=== PATIENT | female | born 1960 | race Caucasian/White ===

== ENCOUNTER 2024-08-02 15:58 | Outpatient (REF) | payer BC, SELFPAY ==
[2024-08-02 16:22] LABS: MANUAL DIFF FLAG NO
[2024-08-02 17:27] LABS: Anion Gap 15 (12-20); Blood Urea Nitrogen 35 mg/dL (9-16); Calcium 10.3 mg/dL (8.4-10.2); Carbon Dioxide 29 mmol/L (22-29); Chloride 100 mmol/L (96-108); Estimated Glomerular Filt Rate > 60; Glucose Random 104 mg/dL (60-115); Potassium 3.9 mmol/L (3.3-5.1); Sodium 140 mmol/L (135-145)
[2024-08-02 17:36] LABS: Basophils Percent Auto 0.5 % (0-2); Eosinophils Absolute Auto 0.2 X10*3/uL (0.0-0.4); Eosinophils Percent Auto 3.1 % (0-4); Hematocrit 44.2 % (37.0-47.0); Hemoglobin 14.7 g/dl (12.0-16.0); Imm Gran Abs Auto 0.03 X10*3/uL (0.00-0.03); Imm Gran Pct Auto 0.4 % (0.0-0.4); Lymphocytes Absolute Auto 3.3 X10*3/uL (1.2-4.9); Lymphocytes Percent Auto 42.2 % (20-40); Mean Corpuscular HGB Conc 33.3 g/dl (31.0-35.0); Mean Corpuscular Hemoglobin 31.9 pg (27.0-33.0); Mean Corpuscular Volume 95.9 fL (80.0-98.0); Mean Platelet Volume 8.9 fL (9.4-12.3); Monocytes Absolute Auto 0.5 X10*3/uL (0.1-1.2); Monocytes Percent Auto 5.8 % (2-11); Neutrophils Absolute Auto 3.7 x10*3/uL (2.0-8.3); Platelet Count 375 X10*3/uL (160-400); Red Blood Count 4.61 X10*6/uL (4.20-5.50); Red Cell Distribution Width 12.6 % (11.0-16.0); White Blood Count 7.8 X10*3/uL (4.8-10.8)
--- OUTSIDE RECORDS SUMMARY | 2024-08-02 17:58 | XMS_ITS | Clinical Summary ---
Author Organization [facility] Address [address] [place] [address] Phone Care Team Providers Care Snowmaker Name Role Phone Tay Dumont MD Primary Care Provider [phone] Allergies Active Allergy Reactions Criticality Noted Date Comments Codeine 07/12/2024 Penicillins 07/12/2024 Medications loratadine 10 mg capsule Take 10 mg by mouth. 05/06/2020 Active atorvastatin (LIPITOR) 20 mg tablet Take 1 tablet (20 mg total) by mouth at bedtime. Active verapamil ER (VERELAN) 180 mg 24 hr capsule Take 1 capsule (180 mg total) by mouth 1 (one) time each day. 04/22/2024 Active metoprolol succinate (TOPROL-XL) 100 mg 24 hr tablet Take 1 tablet (100 mg total) by mouth 1 (one) time each day. Active lisinopril-hydr oCHLOROthiazide (PRINZIDE,ZESTO RETIC) 20-25 mg per tablet Take 2 tablets by mouth 1 (one) time each day. 06/23/2024 Active ondansetron (ZOFRAN) 4 mg tablet Take 1 tablet (4 mg total) by mouth 2 (two) times a day if needed. 03/14/2024 Active lisinopriL (PRINIVIL,ZESTR IL) 10 mg tablet 06/30/2024 Active Encounters Date Type Department Care Team Description 07/12/2024 Telephone Gastroenterology - [address] [facility] [address] [place] [phone] Gerardo Haile MD SPECIAL PROCEDURE 06/07/2024 7:19 AM EST - 06/07/2024 11:59 PM EST Hospital Encounter [facility] [address] [place] [phone] Asthma Discharge Disposition: Home or Self Care from Last 3 Months Social History Tobacco Use Types Packs/Day Years Used Date Smoking Tobacco: Never Smokeless Tobacco: Never Alcohol Use Standard Drinks/Week Comments Never 0 (1 standard drink = 0.6 oz pur e alcohol) Comments Unknown Sex and Gender Information Value Date Recorded Sex Assigned at Not on file Legal Sex Female 11:09 AM EST Gender Identity Not on file Sexual Orientation Not on file Obstetrics History Last Filed Vital Signs Vital Sign Reading Time Taken Comments Blood Pressure - - Pulse - - Temperature - - Respiratory Rate - - Oxygen Saturation - - Inhaled Oxygen Concentration - - Weight 106 kg (234 lb) 08/27/2021 8:37 AM EDT Height 162.6 cm (5' 4 ) 08/27/2021 8:37 AM EDT Body Mass Index 40.17 08/27/2021 8:37 AM EDT Plan of Treatment Health Maintenance Due Date Last Done Comments Cervical Cancer Screening: P ap Smear 1982 Zoster Vaccines (1 of 2) 09/17/2011 Pneumococcal Vaccine: 50+ Years (2 of 2 - PCV) 05/25/2020 05/25/2019 Pneumococcal Vaccine: Pediatrics (0 to 5 Years) and At-Risk Patients (6 to 64 Years) (2 of 2 - PCV) 05/25/2020 05/25/2019 RSV Immunization Adult Patients (1 - Risk 60-74 years 1-dose series) 2021 Cholesterol Screening (Lipid Panel) 03/31/2022 Colorectal Cancer Screening: Colonoscopy 03/31/2022 Depression Screening 03/31/2022 HIV Screening 03/31/2022 Hepatitis C Screening 03/31/2022 Social Influencers of Health Screening 03/31/2022 Hypertension/CHF/CAD Annual BMP Blood Test 04/18/2022 COVID-19 Vaccine (3 - 2023-2 5 season) 2024 03/22/2021, 03/01/2021 Influenza Vaccine (#1) 2024 7, 04/07/2016 Breast Cancer Screening 08/18/2025 08/19/19 24, 12/04/2020, 04/13/2019 DTaP,Tdap,and Td Vaccines (2 - Td or Tdap) 10/19/2025 10/20/2015 HIB Vaccines Aged Out No longer eligi ble based on patient's age to complete this topic HPV Vaccines Aged Out No longer eligi ble based on patient's age to complete this topic Hepatitis A Vaccines Aged Out No long er eligible based on patient's age to complete this topic Hepatitis B Vaccines Aged Out No long er eligible based on patient's age to complete this topic IPV Vaccines Aged Out No longer eligi ble based on patient's age to complete this topic MMR Vaccines Aged Out No longer eligi ble based on patient's age to complete this topic Meningococcal ACWY Vaccine Aged Out N o longer eligible based on patient's age to complete this topic Meningococcal B Vacine Aged Out No lo nger eligible based on patient's age to complete this topic RSV Immunization Patients Under 20 months Aged Out No longer eligible b ased on patient's age to complete this topic Varicella Vaccines Aged Out No longer eligible based on patient's age to complete this topic Procedures Procedure Name Priority Date/Time Associated Diagnosis Comments HC SPIROMETRY BRONCHODILATION RESPONSIVENESS PRE/POST BRONCHODILATOR ADMINISTRATION Routine 06/07/2024 8:07 AM EST Asthma [facility] SCREENING DIGITAL Routine 08/19/2023 10:40 AM EDT Encounter for screening mammogram for malignant neoplasm of breast from Last 3 Months or Most Recently Relevant to Health Maintenance Results * Pulmonary function testing: Carbon Monoxide Diffusing Capacity, Nitrogen Wash Out, Spirometry with Bronchodilator (06/07/2024 8:07 AM EST) Narrative Allyssa Anand MD - 06/08/2024 2:47 PM EST DATE OF SERVICE: 06/07/24 SPIROMETRY: FEV1 is 90 % predicted and an FVC ??is 82 % predicted. The FEV1/FVC ratio is normal, no response to bronchodilators noted. LUNG VOLUMES: Total lung capacity (TLC): 81% predicted. Residual volume (RV): 79% predicted DIFFUSION CAPACITY: DLCO 75% predicted. DlCO/VA 107% of predicted COMPARISONS: INTERPRETATION: This pulmonary function test shows normal spirometry and diffusion. ??There is no significant lung disease based on this PFT ??Allyssa Anand MD ?? us Karolina Power MD PFT ORDERABLES Final Result * [facility] SCREENING DIGITAL (08/19/2023 10:40 AM EDT) Anatomical Region Laterality Modality Mammography 08/19/2023 9:25 AM EDT Narrative 08/19/2023 10:40 AM EDT [facility] Diagnostic Imaging Department [address] [place], [place] [id number] Patient: ??STEPHANIE BRENNAN ?/Age/Sex: 1960 - 62 - F Unit#: ??[id number] ? Location/Status: ??SPDIMAM/REG CLI ? Mnemonic/Ordering Site: ??DIGSC/SPMAM Ordering Physician: ??TAY DUMONT MD [facility] Screening Digital - 08/19/23951 Report Status:Signed EXAM: [facility] Screening Digital EXAM DATE AND TIME: 08/19/2023 9:52 AM HISTORY: ??Annual screening COMPARISON: ??Multiple exams dating back to 2014 TECHNIQUE: Bilateral digital breast tomosynthesis was performed in the CC and MLO projections. Computer aided detection with [employer] Regen 3D 3.1 was employed. TISSUE DENSITY: b. There are scattered areas of fibroglandular density. FINDINGS: No suspicious masses, grouped microcalcifications, or areas of architectural distortion are seen. The skin and vascularity are unremarkable. IMPRESSION: Stable mammographic appearance of the breasts. ??No evidence of malignancy is seen. A negative mammogram in the presence of a clinically suspicious palpable abnormality does not preclude the possibility of malignancy or alter the indications for biopsy. BI-RADS: ??Category 1: Negative RECOMMENDATION(S): 1: Routine screening mammogram BILATERAL in 1 year. 3341F, 7025F Dictating Physician: ??TATI BANKS MD Electronically Signed by: ??TATI BAKNS MD Dic Date/Time: ??08/19/23 1039 Sign date/Time: ??08/19/23 1040 Procedure Note Tati Banks MD - 12/20/2023 [facility] Diagnostic Imaging Department [address] [place], [place] [id number] Patient: STEPHANIE BRENNAN Alvin /Age/Sex: 1960 - 62 - F Unit#: [id number] Location/Status: [facility] CLI Mnemonic/Ordering Site: [facility] Ordering Physician: TAY DUMONT MD [facility] Screening Digital - 08/19/23 - 0952 Report Status:Signed EXAM: [facility] Screening Digital EXAM DATE AND TIME: 08/19/2023 9:52 AM HISTORY: Annual screening COMPARISON: Multiple exams dating back to 2014 TECHNIQUE: Bilateral digital breast tomosynthesis was performed in the CCand MLO projections. Computer aided detection with [employer] 3D 3.1was employed. TISSUE DENSITY: b. There are scattered areas of fibroglandular density. FINDINGS: No suspicious masses, grouped microcalcifications, or areas ofarchitectural distortion are seen. The skin and vascularity are unremarkable. IMPRESSION: Stable mammographic appearance of the breasts. No evidence of malignancyis seen. A negative mammogram in the presence of a clinically suspicious palpable abnormality does not preclude the possibility of malignancy or alter the indications for biopsy. BI-RADS: Category 1: Negative RECOMMENDATION(S): 1: Routine screening mammogram BILATERAL in 1 year. 3341F, 7037F Dictating Physician: TATI BANKS MD Electronically Signed by: TATI BANKS MD Dic Date/Time: 08/19/23 1039 Sign date/Time: 08/19/23 1040 Tay Dumont MD IMG BI PROCEDURES Final Result from Last 3 Months or Most Recently Relevant to Health Maintenance Insurance [address] [place] [address] Advance Directives Documents on File Type Date Recorded Patient Operations Technician Expl anation Health Care Decision (hx) 01/06/2018 AD KNOTT DIRECTIVE Health Care Decision (hx) 01/06/2018 AD KNOTT DIRECTIVE Health Care Decision (hx) 01/06/2018 AD KNOTT DIRECTIVE Health Care Decision (hx) 01/06/2018 AD KNOTT DIRECTIVE Health Care Decision (hx) 01/06/2018 AD KNOTT DIRECTIVE Health Care Decision (hx) 01/06/2018 AD KNOTT DIRECTIVE Health Care Decision (hx) 01/06/2018 AD KNOTT DIRECTIVE Health Care Decision (hx) 01/06/2018 AD KNOTT DIRECTIVE Health Care Decision (hx) 01/06/2018 AD KNOTT DIRECTIVE Health Care Decision (hx) 01/06/2018 AD KNOTT DIRECTIVE Health Care Decision (hx) 01/06/2018 AD KNOTT DIRECTIVE Health Care Decision (hx) 01/06/2018 AD KNOTT DIRECTIVE Health Care Decision (hx) 01/06/2018 AD KNOTT DIRECTIVE Health Care Decision (hx) 01/06/2018 AD KNOTT DIRECTIVE Health Care Decision (hx) 01/06/2018 AD KNOTT DIRECTIVE Health Care Decision (hx) 01/06/2018 AD KNOTT DIRECTIVE Health Care Decision (hx) 01/06/2018 AD KNOTT DIRECTIVE Health Care Decision (hx) 01/06/2018 AD KNOTT DIRECTIVE Health Care Decision (hx) 01/06/2018 AD KNOTT DIRECTIVE Health Care Decision (hx) 01/06/2018 AD KNOTT DIRECTIVE Health Care Decision (hx) 01/06/2018 AD KNOTT DIRECTIVE Care Teams Snowmaker Relationship Specialty Start Date End Date Tay Dumont MD [address] [place] [address] PCP - General Internal Medicine 11/01/17
--- OUTSIDE RECORDS SUMMARY | 2024-08-02 17:58 | XMS_ITS | Encounter Summary ---
Author Organization [facility] Address [address] [place] [address] Care Team Providers Care Diamond Setter Name Role Phone Nirav Dumont MD Primary Care Provider [phone] Reason for Visit * Reason Onset Date Comments SPECIAL PROCEDURE 07/12/2024 Encounter Details Date Type Department Care Team (Late st Contact Info) Description 07/12/2024 Telephone Gastroenterology - [address] [facility] [address] [place] [phone] Gerardo Haile MD [address] [facility] [address] [facility] [address] [place] [address] SPECIAL PROCEDURE Social History Tobacco Use Types Packs/Day Years Used Date Smoking Tobacco: Never Smokeless Tobacco: Never Alcohol Use Standard Drinks/Week Comments Never 0 (1 standard drink = 0.6 oz pur e alcohol) Comments Unknown Sex and Gender Information Value Date Recorded Sex Assigned at Not on file Legal Sex Female 11:09 AM EST Gender Identity Not on file Sexual Orientation Not on file documented as of this encounter Progress Notes * Isela Ramírez - 07/21/2024 9:59 AM EDT CALLED PT TO SCHEDULE, WHEN I STATED WHO I WAS AND THE REASON FOR MY CALL THE PATIENT HUNG UP ON ME * Jaylene Cohen - 07/13/2024 10:56 AM EDT 1st attempt to schedule an appointment patient left message to call back * Niharika Etienne MA - 07/12/2024 10:51 AM EDT MEDS AND ALLERGIES UPDATED * Radhika García - 07/12/2024 9:12 AM EDT Records received from Dr. Dumont's office for screening. Given to MA's to update meds & allergies. documented in this encounter Plan of Treatment Not on file documented as of this encounter Visit Diagnoses Not on filedocumented in this encounter Historical Medications * This list may reflect changes made after this encounter. lisinopriL (PRINIVIL,ZESTRIL ) 10 mg tablet 06/30/2024 ondansetron (ZOFRAN) 4 mg tablet Take 1 tablet (4 mg total) by mouth 2 (two) times a day if needed. 03/14/2024 lisinopril-hydroC HLOROthiazide (PRINZIDE,ZESTORE TIC) 20-25 mg per tablet Take 2 tablets by mouth 1 (one) time each day. 06/23/2024 metoprolol succinate (TOPROL-XL) 100 mg 24 hr tablet Take 1 tablet (100 mg total) by mouth 1 (one) time each day. verapamil ER (VERELAN) 180 mg 24 hr capsule Take 1 capsule (180 mg total) by mouth 1 (one) time each day. 04/22/2024 atorvastatin (LIPITOR) 20 mg tablet Take 1 tablet (20 mg total) by mouth at bedtime. loratadine 10 mg capsule Take 10 mg by mouth. 05/06/2020 added in this encounter Care Teams Diamond Setter Relationship Specialty Start Date End Date Nirav Dumont MD [address] [place] [address] PCP - General Internal Medicine 11/01/17 documented as of this encounter
[2024-08-02 18:06] LABS: Folate 7.2 ng/mL (> or = 4.0); Vitamin B12 374 pg/mL (200-900)
== END 2024-08-02 15:59 | disposition home or self-care (01) ==
LOC: HO.LAB 15:58
PROVIDERS: PCP Internal Medicine; Visit Provider Psychiatry & Neurology Neurology
DX: G31.84 Mild cognitive impairment of uncertain or unknown etiology (principal)
CPT/HCPCS: 36415; 80048; 82607; 82746; 85025

== ENCOUNTER 2024-10-06 09:16 | Day surgery (SDC) | payer BC, SELFPAY ==
--- OUTSIDE RECORDS SUMMARY | 2024-09-27 12:26 | XMS_ITS | Clinical Summary ---
Author Organization [facility] Address [address] [place] [address] Phone Care Team Providers Care Wheat Grower Name Role Phone Tay Dumont MD Primary Care Provider [phone] Allergies Active Allergy Reactions Criticality Noted Date [...] 07/12/2024 Telephone Gastroenterology - [address] [facility] [address] [place] [phone] Gerardo Haile MD SPECIAL PROCEDURE from Last 3 Months Social History Tobacco [...] 08/27/2021 8:37 AM EDT Plan of Treatment Upcoming Encounters Date Type Department Care Team (Late st Contact Info) Description 10/23/2024 9:45 AM EDT Office Visit Pulmonolgy - [place] [address] [place] [phone] Karolina Power MD [address] [place] [address] Health Maintenance Due Date Last Done Comments [...] 5 season) 2024 03/22/2021, 03/01/2021 Influenza Vaccine (Season Ended) 2025 04/12/2017, 04/07/2016 Breast Cancer Screening 08/18/2025 08/19/19 24, [...] age to complete this topic Meningococcal B Vaccine Aged Out No l onger eligible based on patient's age to complete this topic RSV Immunization Patients Under 20 months Aged Out No longer eligible b ased on patient's age to complete this topic Varicella Vaccines Aged Out No longer eligible based on patient's age to complete this topic Procedures Procedure Name Priority Date/Time Associated Diagnosis Comments [facility] SCREENING DIGITAL Routine 08/19/2023 10:40 AM EDT Encounter for screening mammogram for malignant neoplasm of breast from Last 3 Months or Most Recently Relevant to Health Maintenance Results * [facility] SCREENING DIGITAL (08/19/2023 10:40 AM EDT) Anatomical Region Laterality Modality Mammography 08/19/2023 9:25 AM EDT Narrative 08/19/2023 10:40 AM EDT [facility] Diagnostic Imaging Department [address] [place] [id number] Patient: ??STEPHANIE BRENNAN ?/Age/Sex: 1960 - 62 - F Unit#: ??[id number] ? Location/Status: ??SPDIMAM/REG CLI ? Mnemonic/Ordering Site: ??DIGSC/SPMAM Ordering Physician: ??TAY DUMONT MD [facility] Screening Digital - 08/19/23 - 52 Report Status:Signed EXAM: [facility] Screening Digital EXAM DATE AND TIME: 08/19/2023 9:52 AM HISTORY: ??Annual screening COMPARISON: ??Multiple exams dating back to 2014 TECHNIQUE: Bilateral digital breast tomosynthesis was performed in the CC and MLO projections. Computer aided detection with [employer] 3D 3.1 was employed. TISSUE DENSITY: b. [...] ??TATI BANKS MD Electronically Signed by: ??TATI BANKS MD Dic Date/Time: ??08/19/23 1039 Sign date/Time: ??08/19/23 1040 Procedure Note Tati Banks MD - 12/20/2023 [facility] Diagnostic Imaging Department [address] [place] [id number] Patient: STEPHANIE BRENNAN Alvin /Age/Sex: 1960 - 62 - F Unit#: [id number] Location/Status: SPDIMAM/REG CLI [facility]emonic[facility] Ordering Physician: TAY DUMONT MD [facility] Screening Digital - 08/19/23 - 0952 Report Status:Signed EXAM: [facility] Screening Digital EXAM DATE AND TIME: 08/19/2023 9:52 AM HISTORY: Annual screening COMPARISON: Multiple exams dating back to 2014 TECHNIQUE: Bilateral digital breast tomosynthesis was performed in the CCand MLO projections. Computer aided detection with [employer] 3D 3.1was employed. TISSUE DENSITY: b. There [...] in 1 year. 3341F, 7025F Dictating Physician: TATI BANKS MD Electronically Signed by: TATI BANKS MD Dic Date/Time: 08/19/23 1039 Sign date/Time: 08/19/23 1040 Tay Dumont MD IMG BI PROCEDURES Final Result from Last 3 Months or Most Recently Relevant to Health Maintenance Insurance [place] [address] Advance Directives Documents on File Type Date Recorded Patient Supervisor Dock Expl anation Health Care Decision (hx) 01/06/2018 [...] (hx) 01/06/2018 AD KNOTT DIRECTIVE Care Teams Wheat Grower Relationship Specialty Start Date End Date Tay Dumont MD [address] [place] [address] PCP - General Internal Medicine 11/01/17
--- NOTE | ~2024-10-06 | FL_ITS ---
EXAMINATION: XR LUMBAR PUNCTURE CLINICAL INFORMATION: DEMENTIA PANEL COMPARISON: None available. TECHNIQUE: Following explaining fluoroscopy-guided lumbar puncture procedure, benefits and risk, a written consent was obtained. Patient was placed prone on fluoroscopy table and a site was selected and the skin marker placed. The skin marker area was cleaned and draped in usual sterile manner. 1% lidocaine was injected at puncture site. A 28 spinal needle was then inserted from the skin intrathecally at the L2-4 disc level. After removing the stylet and observing CSF return patient was turned in left lateral decubitus view and opening CSF pressure was obtained. Subsequently CSF fluid was collected in 4 test tubes. The stylet was reintroduced postprocedure needle withdrawn. Complete hemostasis achieved at puncture site. Sterile Band-Aid applied postprocedure. Patient tolerated procedure extremely well. FINDINGS: On images obtained of lumbar spine there is maintained lumbar lordosis. Mild loss of L5-S1 disc height is seen. Rest the disc heights are normal. Needle is positioned at the L3-4 disc level. Opening CSF pressure measured 12.25 cm of water. Approximately 15 mL of clear CSF fluid collected in 4 test tubes and sent to lab as per physician request. FLUOROSCOPY TIME: 41 seconds DOSE AREA PRODUCT: 1436 uGy-m2 (microgray-meter squared) FL/FL guided lumbar puncture LP IMPRESSION: Successful fluoroscopy-guided lumbar puncture performed. Electronically signed by: Steven Rocha MD 10/06/2024 12:32 PM EDT
[2024-10-06 09:08] VITALS: BMI 28.0
[2024-10-06 09:20] VITALS: PULSE 65; TEMP 36.9; O2SAT 96; BMI 31.1
[2024-10-06 09:46] VITALS: BP 110/64
[2024-10-06 10:14] LABS: MANUAL DIFF FLAG NO
[2024-10-06 10:17] LABS: Basophils Percent Auto 0.3 % (0-2); Eosinophils Absolute Auto 0.1 X10*3/uL (0.0-0.4); Eosinophils Percent Auto 1.5 % (0-4); Hematocrit 38.2 % (37.0-47.0); Hemoglobin 13.1 g/dl (12.0-16.0); Imm Gran Abs Auto 0.02 X10*3/uL (0.00-0.03); Imm Gran Pct Auto 0.3 % (0.0-0.4); Lymphocytes Absolute Auto 2.1 X10*3/uL (1.2-4.9); Lymphocytes Percent Auto 31.5 % (20-40); Mean Corpuscular HGB Conc 34.3 g/dl (31.0-35.0); Mean Corpuscular Hemoglobin 32.4 pg (27.0-33.0); Mean Corpuscular Volume 94.6 fL (80.0-98.0); Mean Platelet Volume 9.1 fL (9.4-12.3); Monocytes Absolute Auto 0.4 X10*3/uL (0.1-1.2); Monocytes Percent Auto 6.5 % (2-11); Neutrophils Absolute Auto 4.1 x10*3/uL (2.0-8.3); Neutrophils Percent Auto 59.9 % (45-73); Platelet Count 291 X10*3/uL (160-400); Red Blood Count 4.04 X10*6/uL (4.20-5.50); Red Cell Distribution Width 12.5 % (11.0-16.0); White Blood Count 6.8 X10*3/uL (4.8-10.8)
[2024-10-06 10:27] LABS: Anion Gap 14 (12-20); Blood Urea Nitrogen 25 mg/dL (9-16); Calcium 9.5 mg/dL (8.4-10.2); Carbon Dioxide 28 mmol/L (22-29); Chloride 104 mmol/L (96-108); Creatinine Clr Calc Pharmacy 68.1; Estimated Glomerular Filt Rate > 60; Glucose Random 112 mg/dL (60-115); Sodium 143 mmol/L (135-145)
[2024-10-06 10:28] LABS: INTERNATIONAL NORM RATIO 0.9 (0.9-1.1); Prothrombin Time 10.5 SEC (10.9-12.4)
[2024-10-06 11:25] VITALS: BP 117/61; PULSE 54; RESP 17; TEMP 36.4; O2SAT 99
[2024-10-06 11:40] VITALS: BP 114/65; PULSE 53; RESP 16; O2SAT 95
[2024-10-06 11:55] VITALS: BP 119/67; PULSE 52; RESP 16; O2SAT 98
[2024-10-06 12:17] LABS: CSF Appearance Clear, Colorless; CSF Tube # 2
[2024-10-06 12:20] VITALS: BP 118/69; PULSE 53; RESP 16; TEMP 36.4; O2SAT 100
[2024-10-06 12:29] LABS: Glucose CSF 65 mg/dL; Total Protein CSF 53.6 mg/dL (15-45)
[2024-10-06 12:33] LABS: Oligoclonal Serum Yes
[2024-10-06 13:22] LABS: Appearance CSF CLEAR; CSF Tube # 4; Color CSF COLORLESS; Lymphocytes CSF 100 %; Red Blood Cell CSF 1 MM*3; White Blood Cell CSF 2 MM*3
[2024-10-06 13:23] LABS: CSF Volume 4.5 ML
[2024-10-11 03:43] LABS: Albumin 3.8 g/dL (3.6-5.1); Albumin, CSF 34.9 mg/dL (8.0-42.0); IgG 919 mg/dL (600-1540); IgG Synthesis Rate -4.5 mg/24 h (-9.9-3.3); IgG, CSF 3.5 mg/dL (0.8-7.7)
[2024-10-11 22:33] LABS: Oligoclonal Banding Absent (Absent)
== END 2024-10-06 12:41 | disposition home or self-care (01) ==
PROVIDERS: Radiology Diagnostic Radiology; PCP Internal Medicine; Visit Provider Psychiatry & Neurology Neurology
PROC: 009U3ZZ Drainage of Spinal Canal, Percutaneous Approach (ICD-10-PCS; CPT 62270; principal; 2024-10-06 11:00)
DX: G31.84 Mild cognitive impairment of uncertain or unknown etiology (principal); E78.5 Hyperlipidemia, unspecified; I10 Essential (primary) hypertension; G44.40 Drug-induced headache, not elsewhere classified, not intractable; Z86.73 Personal history of transient ischemic attack (TIA), and cerebral infarction without residual deficits; G47.33 Obstructive sleep apnea (adult) (pediatric); Z79.899 Other long term (current) drug therapy; Z88.0 Allergy status to penicillin; Z88.5 Allergy status to narcotic agent
CPT/HCPCS: 36415; 62328; 80048; 82042; 82234; 82945; 83916; 84157; 84393; 84394; 85025; 85610; 87015; 87070; 87205; 89051; J2003

== ENCOUNTER → 2024-10-06 10:00 | Outpatient (BNV) | payer BC, SELFPAY | PROVIDERS: PCP Internal Medicine; Visit Provider Radiology Diagnostic Radiology | DX: G31.84 Mild cognitive impairment of uncertain or unknown etiology (principal) | CPT/HCPCS: 62328 ==

== ENCOUNTER 2024-12-27 10:41 | Outpatient (AMB) | payer BC, MEDICAID, SELFPAY ==
--- NOTE | 2024-12-27 11:15 | A.OFFVIS_ITS ---
Intake Visit Reasons: [facility] Allergies penicillin G (Penicillin G) Allergy (Mild, Verified 10/06/24 09:32) FEVER,RASH codeine (Codeine) Adverse Reaction (Mild, Verified 10/06/24 09:32) FEVER,RASH Medication List - Last Reconciled 12/27/24 by Heather Bay MD albuterol sulfate 90 mcg/actuation 2 puffs inhalation Q4-6H PRN amitriptyline 20 mg (2 x 10 mg) PO BEDTIME 90 days atorvastatin 20 mg PO BEDTIME euafmqkoysz-yhvzjhlrj-nsnvsadf 100-62.5-25 mcg (Trelegy Ellipta) 1 ea inhalation DAILY lisinopril-hydrochlorothiazide 20-25 mg 2 tabs PO DAILY meclizine 12.5 mg PO TID PRN metoprolol succinate ER 100 mg PO DAILY verapamil ER 180 mg PO DAILY HPI Comments Details: Medication overuse CONTRERAS and memory issues. Headaches are better but still using 4 Tyl a day. No side effects from Amitriptyline. MRI and EEG reported below. She has been let go?from her job because she is unable to perform her duties that she did for 25 years.? She is aware that she has some mental issues with her memory.?When too much going on it becomes overwhelming an dshe gets aggravated and angry and confused. It comes and goes. She sleeps excessively.? She complains of 4 months of daily headache for which he is taking 2 Tylenol every 4 hours.? She had a CT scan of the brain at [facility] which was apparently negative.? There is no family history of dementia.? She gives a remote history of having had a brain bleed because of uncontrolled hypertension about 10 years ago. [facility]LY [facility], [facility] Medical History (Updated 12/27/24 @ 11:19 by Heather Bay MD) Gall bladder inflammation Hx of electroencephalogram Mild cognitive impairment NATHAN (obstructive sleep apnea) HLD (hyperlipidemia) CVA (cerebrovascular accident) Anxiety Depression HTN (hypertension) Social History Patient Tobacco Use Status: Never used Tobacco Review of Systems Const Details: Sleep:? Difficulty getting to sleepdenies.? Difficulty maintaining sleepdenies?.? Urge to move legsdenies.? Teeth grindingdenies.? Shouting or Kicking during sleep denies.? Abnormal behavior during sleepdenies.? Excessive sleepadmits.? Snoring denies.? Daytime sleepinessdenies. ???General/Constitutional:? Change in appetitedenies.? Chillsdenies.? Fatiguedenies.? Feverdenies.? Weight gaindenies.? Weight lossdenies. ???Ophthalmologic:? Blurred visiondenies.? Diminished visual acuitydenies. ???ENT:? Stuffinessdenies.? Decreased hearingdenies.? Dry mouthdenies.? Ear paindenies.? Nosebleeddenies.? Ringing in the earsdenies.? Sinus paindenies.? Sore throat denies.? Swollen glandsdenies. ???Endocrine:? Cold intolerancedenies.? Excessive thirstdenies.? Frequent urinationdenies.? Heat intolerancedenies. ???Respiratory:? Shortness of breathdenies.? Chest paindenies.? Coughdenies. ???Breast:? Breast lumpdenies.? Nipple dischargedenies. ???Cardiovascular:? Chest pain at restdenies.? Chest pain with exertiondenies.? Claudicationdenies .? Dizzinessdenies.? Fluid accumulation in the legsdenies.? Irregular heartbeat denies.? Palpitationsdenies. ???Gastrointestinal:? Abdominal paindenies.? Constipationdenies.? Diarrheadenies.? Difficulty swallowingdenies.? Heartburndenies.? Nauseadenies.? Rectal bleedingdenies. ???Hematology:? Easy bruisingdenies.? Prolonged bleedingdenies. ???Genitourinary:? Frequent urinationdenies.? Urgencydenies.? Incontinencedenies.? Erectile Dysfunctiondenies. ???Musculoskeletal:? Neck paindenies.? Back paindenies.? Muscle achesdenies.? Painful jointsdenies.? Sciaticadenies.? Weaknessdenies. ???Podiatric:? Difficulty walkingdenies.? Foot numbnessdenies. ???Neurologic:? Difficulty swallowingdenies.? Balance difficultydenies.? Coordinationnormal.? Difficulty speakingdenies.? Dizzinessdenies.? Faintingdenies.? Gait abnormality denies.? Headacheadmits.? Loss of strengthdenies.? Loss of use of extremity denies.? Low back paindenies.? Memory lossadmits.? Seizuresdenies.? Ticsdenies.? Tingling/Numbnessdenies.? Transient loss of visiondenies.? Tremordenies. ???Psychiatric:? Anxietydenies.? Auditory/visual hallucinationsdenies.? Delusionsdenies.? Depressed mooddenies.? Stressorsdenies.? Substance abusedenies.? Suicidal thoughtsdenies. Physical Exam Neuro Other: Neurological: Abnormal neurological findings:??Flat affect. MMS 29/30.?Mental Status:??alert and oriented X 3,?Normal attention, orientation, memory and affect.?Cranial Nerves:??Pupils are equal, round and reactive to light. Fundoscopy shows normal disc bilaterally. External occular muscles are intact. Visual shaw are full, no ptosis. Face is symmetrical, no facial weakness or droop. Facial sensations are normal. Tongue protrudes in midline. Palate elevates symmetrically. Shoulder shrugging is normal..?Motor Examination:??Normal muscle tone, bulk and strength,?No atrophy or fasciculations,?No drift of the extended upper extremities,?Deep tendon reflexes are 2+?,?Plantars are flexor?.?Straight Leg Raising:??90 degrees.?Sensory Exam:??Normal light touch, temperature, pinprick, vibration and joint-position sensations?,?Rhomberg sign is absent.?Coordination:??no ataxia,?no titubation,?iqazjy-ri-hwur, hchj-jlpz-kuxm test and rapid alternating movements were normal.?Gait Exam:??Within normal limits.?Cerebellar Signs:??Xtxbbf-ps-blax and lmhw-es-ebji is normal,?no dysdiadochokinesia?.?Extrapyramidal System:??No tremor, rigidity with normal facial expressions,?No bradykinesia, no bradyphrenia. Normal arm swing and posture. No propulsion or retropulsion.?Speech:??Normal,?no dysphasia or dysarthria..? Mini Mental Status Exam: Level of Consciousness:??Alert.?Orientation:??Knows correct year, month, date, day and season,?Knows correct city, county and state. Knows correct location and floor.?Registration:??Able to register 3 objects.?Attention:??Serial 7's performed accurately.?Recall:??Able to recall 2 out of 3 objects.?Language:??Normal spontaneous speech, fluency, repetition,naming, comprehension, reading and writing.?Total Score:??29/30.? General Examination: GENERAL APPEARANCE:??normal,?in no acute distress.?HEAD:??normocephalic,?atraumatic.?EYES:??sclera non- icteric,?conjunctiva clear.?EARS:??auditory canal clear,?tympanic membrane intact, clear.?NOSE:??no lesions.?ORAL CAVITY:??gums normal,?mucosa moist,?no lesions.?THROAT:??clear.?NECK/THYROID:??no cervical lymphadenopathy,?thyroid normal,?neck supple, full range of motion,?no carotid bruit.?SKIN:??no rashes,?no significant birthmarks.?HEART:??S1, S2 normal,?no murmurs.?LUNGS:??clear anteriorly and posteriorly.?CHEST:??no gross rib deformity,?clear to auscultation.?BACK:??normal exam of spine.?EXTREMITIES:??no edema.?PERIPHERAL PULSES:??normal.?PSYCH:??alert, oriented,?cognitive function intact,?cooperative with exam.? Results Reviewed Results Reviewed: Spinal fluid Protein 53.6 Phosphotau and A beta 42 inconclusive Assessment & Plan Assessment & Plan (1) Chronic daily headache: Code(s): R51.9 - Headache, unspecified Category: Medical (2) Mild cognitive impairment: Comment: 09/22/24 MMSE , MoCA with MIS 10/15. 08/17/24 EEG- WNL MRI : mild to moderate cortical atrophy , particularly in the temporal lobes. Minor microvascular changes Code(s): G31.84 - Mild cognitive impairment of uncertain or unknown etiology Category: Medical Plan Add Donepezil 5mg Medications: New donepezil 5 mg PO DAILY 30 tabs 5RF 30 days Coding Level of Care Code Est Pt Level 4 (54539) Diagnoses Chronic daily headache R51.9 Mild cognitive impairment G31.84
--- OUTSIDE RECORDS SUMMARY | 2024-12-27 11:35 | XMS_ITS | Clinical Summary ---
Author Organization [facility] Address [address] [place] [id number] Phone Care Team Providers Care Sales Promoter Name Role Phone Nirav Dumont MD Primary Care Provider [phone] Active Problems Problem Noted Date Diagnosed Date Other chest pain 06/30/2019 Social History Tobacco Use Types Packs/Day Years Used Date Smoking Tobacco: Never Assessed Education Answer Date Recorded Are you interested in more education? Not on alex e 08/28/2022 Are you concerned about learning? Not on file 08/28/2022 No 08/28/2022 No 08/28/2022 Digital Access Answer Date Recorded No 09/26/2022 No 09/26/2022 No 09/26/2022 Reliable internet access at home? Not on file 09/26/2022 Device with a working camera? Not on file Comments Unknown Sex and Gender Information Value Date Recorded Sex Assigned at Not on file Legal Sex Female 2:06 PM EST Gender Identity Not on file Sexual Orientation Not on file Last Filed Vital Signs Vital Sign Reading Time Taken Comments Blood Pressure 122/72 06/30/2019 1:35 PM EST Pulse - - Temperature - - Respiratory Rate - - Oxygen Saturation 99% 06/30/2019 1:00 PM EST Inhaled Oxygen Concentration - - Weight - - Height - - Body Mass Index - - Plan of Treatment Health Maintenance Due Date Last Done Comments LIPID PANEL 1961 DEPRESSION SCREENING 1973 SMOKING Hx and SMOKELESS TOB ACCO SCREENING 1974 HEPATITIS C SCREENING 09/17/1979 HIV ONE-TIME SCREENING (18-6 5 YEARS) 09/17/1979 PAP SMEAR 1982 MAMMOGRAM 2001 COLOGUARD 2006 COLONOSCOPY 2006 COLORECTAL CANCER SCREENING 2006 FIT TEST 2006 FOBT 2006 SIGMOIDOSCOPY 2006 VIRTUAL COLONOSCOPY 2006 PNEUMOCOCCAL VACCINES (50+ y ears) (1 of 1 - PCV) 09/17/2011 ZOSTER VACCINES (1 of 2) 09/17/2011 COVID-19 VACCINE (2 - 2023-2 5 season) 2024 03/01/2021 Adult Td,Tdap Booster 10/19/2025 10/20/2015 RSV VACCINE (1 - 1-dose 75+ series) 2036 HEPATITIS A VACCINES Aged Out No long er eligible based on patient's age to complete this topic HIB VACCINES Aged Out No longer eligi ble based on patient's age to complete this topic MENINGOCOCCAL VACCINES (ACWY) Aged Out No longer eligible based on patient's age to complete this topic MENINGOCOCCAL VACCINES (B) Aged Out N o longer eligible based on patient's age to complete this topic Medical Devices Not on file [place] [address] [address] [place] [address] PPO [facility] PPO [employer] OUT OF STATE PPO BL[employer] OUT OF STATE PPO [address] [place] [id number] [employer] OUT OF STATE PPO [address] [id number] [employer] OUT OF STATE PPO BL[employer] OUT OF STATE PPO [employer] OUT OF STATE PPO [address] [place] [address] [facility] OUT OF STATE PPO Care Teams Sales Promoter Relationship Specialty Start Date End Date Nirav Dumont MD [address] [place] [address] [address] [place] [address] PCP - General Internal Medicine 06/30/19 Additional Source Comments The information contained in this document represents components of the legal health record. It is not the complete legal health record.[facility]
--- OUTSIDE RECORDS SUMMARY | 2024-12-27 11:35 | XMS_ITS | Encounter Summary ---
Author Organization [facility] Address [address] [place] [address] Phone Care Team Providers Care Marketing And Public Relations Manager Name Role Phone Pcp, Unknown Primary Care Provider Nirav Snyder MD Primary Care Provider [phone] Reason for Referral * MRI/CAT Scan - Closed Specialty Diagnoses / Procedures Referred By Contac t Referred To Contact Radiology Diagnoses Atypical chest pain Procedures NC Myocardial Perfusion Exercise Multiple Ru Viveros DO Phone: tel: fax: mailto:[email or web address] Referral ID Status Reason Start Date Expiration Date Visits Re quested Visits Authorized [id number] Closed 06/27/2019 09/25/2019 1 1 * Outpatient Procedure - Closed Specialty Diagnoses / Procedures Referred By Contac ysabel Referred To Contact Diagnoses Atypical chest pain Procedures Adult Echo TTE Ru Viveros DO Phone: tel: fax: mailto:[email or web address] Referral ID Status Reason Start Date Expiration Date Visits Re quested Visits Authorized [id number] Closed 06/23/2019 06/22/2020 1 1 Encounter Details Date Type Department Care Team (Latest Contact Info) Description 06/23/2019 Transcribe [facility] [address], [address] [place] [address] Ru Viveros DO [address] [address] [email or web address] Atypical chest pain (Primary Dx) Social History Tobacco Use Types Packs/Day Years Used Date Smoking Tobacco: Never Assessed Comments Unknown Sex and Gender Information Value Date Recorded Sex Assigned at Not on file Legal Sex Female 2:06 PM EST Gender Identity Not on file Sexual Orientation Not on file documented as of this encounter Plan of Treatment Scheduled Orders Name Type Priority Associated Diagnoses Orde r Schedule Adult Echo TTE Echocardiography Routine Atypical chest pain Ordered: 06/23/2019 documented as of this encounter Procedures Procedure Name Priority Date/Time Associated Diagnosis Comments NC MYOCARDIAL PERFUSION EXERCISE, MULTI Routine 06/30/2019 1:36 PM EST Atypical chest pain documented in this encounter Results * NC Myocardial Perfusion Exercise Multiple (06/30/2019 1:36 PM EST) Nuc Stress EF 66 % LV Systolic Volume 28 mL LV Diastolic Volume 83 mL EF 66 % LV Systolic Volume Index 33 mL/m2 LV Diastolic Volume Index 96 mL/m2 Anatomical Region Laterality Modality Heart, Vascular Ultrasound Other Narrative 06/30/2019 3:40 PM EST Normal study. There is no evidence of myocardial infarction or ischemia. Normal LV size and function with no regional wall motion abnormalities. Very low likelihood of hemodynamically significant coronary artery disease. Low risk study for myocardial events or cardiac in the next two years. Nuclear Study Quality TYPE OF STUDY: Myocardial Perfusion Imaging after Regadenoson protocol with gated SPECT. PROTOCOL USED: One day Regadenoson rest-stress protocol in the supine and prone position. Images were obtained in gated tomographic technique. Images were processed in SPECT format, reconstructed tomographically and compared [id number]-uk-[id number] in short axis, horizontal long axis and vertical long axis. DOSE: Technetium 99m Sestamibi 7.1 mCi injected intravenously at rest on 06/30/2019 with post injection scan time of 60 minutes. Technetium 99m Sestamibi 22.0 mCi injected intravenously after Regadenoson infusion on 06/30/2019 with post injection scan time of 30 minutes. Overall image quality is good. Breast attenuation is present. . Study was gated successfully. Perfusion Defect The lung to heart ratio is 0.32. Response to Stress Stress Report: Weight: 196 lbs BMI: 32.69 Mrs. Stephanie Brennan exercised for 3: 48 minutes on a Bk protocol achieving 6.4 METS. Target heart rate was not achieved with exercise. Test was done on metoprolol. Test was converted to a pharmacologic. 0.4 mg Regadenoson (lexiscan) given IV push over 10 seconds as per protocol immediately followed by injection of Tc99m Sestamibi by [facility] non licensed nuclear equipment operator. 1. EKG - Baseline EKG showed normal sinus rhythm, nonspecific ST-T wave abnormalities. No ischemic EKG changes with exercise or after the injection of Lexiscan. 2. SYMPTOMS -patient reported flushing after the injection of Lexiscan. 3. PHYSIOLOGY - Resting HR was 59. After Lexiscan injection, HR 92 4. ARRHYTHMIAS -occasional PVCs Conclusion - no ischemic EKG changes with pharmacologic testing. Nuclear images pending and will be reported separately. See attached stress report for full details. Noah Bolden SPECIAL EDUCATION AIDE . Perfusion Comments Stress LV cavity volume was 66 mL. Resting LV cavity volume was 61 mL. The stress/rest perfusion ratio is 1.08. The TID ratio was 1.1. Stress Function Comments Left ventricular function post-stress was normal. Post-stress ejection fraction was 66%. Stress end diastolic index: 96 mL/m2. Stress end systolic index: 33 mL/m2. Nuclear Prior Study There is no prior study available for comparison. Rest Function Comments Left ventricular function at rest was normal. Resting ejection fraction was 66%. Rest end diastolic index: 83 mL. Rest end systolic index: 28 mL. Perfusion Scoring Stress Summed Score: 0 Percent Normal: 0.00% The left ventricular perfusion is normal. Perfusion Scoring Resting Summed Score: 0 Percent Normal: 0.00% The left ventricular perfusion is normal. Procedure Note Lory Beebe MD / Artemio Garcia MD - 06/30/2019 Normal study. There is no evidence of myocardial infarction or ischemia. Normal LV size and function with no regional wall motion abnormalities. Very low likelihood of hemodynamically significant coronary arterydisease. Low risk study for myocardial events or cardiac in the next twoyears. Ru Nelson Arcoleo DO CV NM CARDIAC Final Result documented in this encounter Visit Diagnoses Diagnosis Atypical chest pain- Primary Other chest pain Other chest pain- Primary documented in this encounter Care Teams Marketing And Public Relations Manager Relationship Specialty Start Date End Date Pcp, Unknown PCP - General 06/23/19 06/29/19 Nirav Dumont MD [address] [place] [address] PCP - General Internal Medicine 06/30/19 documented as of this encounter Additional Source Comments The information contained in this document represents components of the legal health record. It is not the complete legal health record.[facility]
--- OUTSIDE RECORDS SUMMARY | 2024-12-27 11:35 | XMS_ITS | Clinical Summary ---
Author Organization [facility] Address [address] [place] [address] Phone Care Team Providers Care Development Administrator Name Role Phone Nirav Dumont MD Primary Care Provider Allergies Active Allergy Reactions Criticality Noted Date Comments Codeine 07/12/2024 Penicillins 07/12/2024 Medications loratadine 10 mg capsule Take 10 mg by mouth. 05/06/19 21 Active atorvastatin (LIPITOR) 20 mg tablet Take 1 tablet (20 mg total) by mouth at bedtime. Active verapamil ER (VERELAN) 180 mg 24 hr capsule Take 1 capsule (180 mg total) by mouth 1 (one) time each day. 04/22/20 24 Active metoprolol succinate (TOPROL-XL) 100 mg 24 hr tablet Take 1 tablet (100 mg total) by mouth 1 (one) time each day. Active lisinopril-hyd roCHLOROthiazi de (PRINZIDE,ZEST ORETIC) 20-25 mg per tablet Take 2 tablets by mouth 1 (one) time each day. 06/23/19 25 Active ondansetron (ZOFRAN) 4 mg tablet Take 1 tablet (4 mg total) by mouth 2 (two) times a day if needed. 03/14/20 24 Active lisinopriL (PRINIVIL,ZEST RIL) 10 mg tablet 06/30/19 25 Active amitriptyline (ELAVIL) 10 mg tablet Take 2 tablets (20 mg total) by mouth at bedtime. at bedtime 10/10/19 25 Active umeclidinium-v ilanteroL (Anoro Ellipta) 62.5-25 mcg/actuation inhaler Inhale 1 puff by mouth 1 (one) time each day. 3 each 12/07/19 25 026 Active umeclidinium-v ilanteroL (Anoro Ellipta) 62.5-25 mcg/actuation inhaler Inhale 1 puff by mouth 1 (one) time each day. 3 each 12/07/19 25 026 Active albuterol HFA (PROAIR HFA ; PROVENTIL HFA ; VENTOLIN HFA) 90 mcg/actuation inhaler Inhale 2 puffs by mouth 4 (four) times a day. 36 g 12/19/19 25 Active potassium chloride (MICRO-K) 10 mEq CR capsule Take 1 capsule (10 mEq total) by mouth 1 (one) time each day. 10/28/19 25 Active nitroglycerin (Nitrostat) 0.[address] 1 tablet (0.4 mg total) under the tongue. 03/08/20 24 Active fluticasone-um eclidinium-joe anterol (TRELEGY ELLIPTA) 100-62.5-25 mcg inhaler Inhale 1 puff (100 mcg total) by mouth 1 (one) time each day. Rinse mouth with water after use to reduce aftertaste and incidence of candidiasis. Do not swallow. 60 each 12/22/19 25 Active albuterol HFA (PROAIR HFA ; PROVENTIL HFA ; VENTOLIN HFA) 90 mcg/actuation inhaler Inhale 2 puffs by mouth 4 (four) times a day. 05/12/19 25 025 Discontinued(Re order) Trelegy Ellipta 100-62.5-25 mcg inhalerIndicat ions:Severe asthma without complication, unspecified whether persistent Inhale 1 puff (100 mcg total) by mouth 1 (one) time each day. 1 each 11/30/19 25 025 Discontinued umeclidinium-v ilanteroL (Anoro Ellipta) 62.5-25 mcg/actuation inhaler Inhale 1 puff by mouth 1 (one) time each day. 3 each 11 12/01/19 025 Discontinued(Re order) fluticasone-um eclidinium-joe anterol (TRELEGY ELLIPTA) 100-62.5-25 mcg inhaler Inhale 1 puff (100 mcg total) by mouth 1 (one) time each day. Rinse mouth with water after use to reduce aftertaste and incidence of candidiasis. Do not swallow. 025 Discontinued(Re order) Hospital, Clinic, or Other Facility Administered Medication Ordered Dose Route Frequency Start Date End Date Status fluticasone furoate (ARNUITY ELLIPTA) inhaler blister with device 1 puffIndications:Pulmonary emphysema, unspecified emphysema type ([facility] V24, [facility] V28) 1 puff inhl Daily 11/30/2024 Active fluticasone furoate (ARNUITY ELLIPTA) inhaler blister with device 1 puffIndications:Pulmonary emphysema, unspecified emphysema type ([facility] V24, [facility] V28) 1 puff inhl Daily 12/06/2024 Active Active Problems Problem Noted Date Diagnosed Date Class 1 obesity 12/21/2024 NATHAN (obstructive sleep apnea) 10/20/2024 Palpitations 10/20/2024 Pancreatitis 10/20/2024 Severe obesity (BMI 35.0-39. 9) with comorbidity ([facility] V24, [facility] V28) 10/20/2024 Vitamin D deficiency 10/20/2024 COPD (chronic obstructive pu lmonary disease) ([facility] V24, [facility] V28) 10/20/2024 Anxiety disorder 12/27/2020 Calculus of gallbladder 12/27/2020 Coronary atherosclerosis of [place] coronary micaela ry 12/27/2020 Diverticulitis 12/27/2020 HTN (hypertension) 12/27/2020 Hyperlipidemia 12/27/2020 Joint pain of ankle and foot 12/27/2020 Lumbago 12/27/2020 Over weight 12/27/2020 Stress incontinence, female 12/27/2020 Other chest pain 06/30/2019 Encounters Date Type Department Care Team Description 12/21/2024 Telephone Pulmonolgy - [address] [phone] Karolina Power MD [facility] [address] [place] [phone] Karolina Power MD 11/29[facility] [address] [phone] Karolina Power MD 11/28/2024 3:35 AM EDT - 11/28/2024 8:10 AM EDT Emergency [facility] Emergency [address] [place] [phone] Discharge Disposition: Left Against Medical Advice 11/02/2024 2:45 PM EDT [facility] [address] [phone] Karolina Power MD Severe asthma, unspecified whether complicated, unspecified whether persistent (Primary Dx); Severe obesity (BMI 35.0-39.9) with comorbidity (CMS/HCC V24, CMS/HCC V28) from Last 3 Months Social History Tobacco [...] Sign Reading Time Taken Comments Blood Pressure 102/72 11/28/2024 3:51 AM EDT Pulse 65 11/28/2024 3:51 AM EDT Temperature 36.9 C (98.4 F) 11/28/2024 3:51 AM EDT Respiratory Rate 22 11/28/2024 3:51 AM EDT Oxygen Saturation 100% 11/28/2024 3:51 AM EDT Inhaled Oxygen Concentration - - Weight 74.8 kg (165 lb) 11/28/2024 3:51 AM EDT Height 165.1 cm (5' 5 ) 11/28/2024 3:51 AM EDT Body Mass Index 27.46 11/28/2024 3:51 AM EDT Plan of Treatment Upcoming Encounters Date Type Department Care Team (Late st Contact Info) Description 02/05/2025 9:45 AM EDT Office Visit [place]gy - [place] [address] [place] [address] Karolina Power MD [facility] [place] [address] Health Maintenance Due Date Last Done Comments Cervical Cancer Screening: P ap Smear 1982 Zoster Vaccines (1 of 2) 09/17/2011 Pneumococcal Vaccine: 50+ Years (2 of 2 - PCV) 05/25/2020 05/25/2019 RSV Immunization Adult Patients (1 - Risk 60-74 years 1-dose series) 2021 Cholesterol Screening (Lipid Panel) 03/31/2022 Colorectal Cancer Screening: Colonoscopy 03/31/2022 HIV Screening 03/31/2022 Hepatitis C Screening 03/31/2022 Social Influencers of Health Screening 03/31/2022 COVID-19 Vaccine (3 - 2023-2 5 season) 2024 03/22/2021, 03/01/2021 Depression Screening 05/03/2024 Influenza Vaccine (#1) 2025 7, 04/07/2016 Breast Cancer Screening 08/18/2025 08/19/19 24, 12/04/2020, 04/13/2019 DTaP,Tdap,and Td Vaccines (2 - Td or Tdap) 10/19/2025 10/20/2015 Hypertension/CHF/CAD Annual BMP Blood Test 11/28/2025 11/28/2024 HIB Vaccines Aged Out No longer eligi [...] Procedure Name Priority Date/Time Associated Diagnosis Comments ECG ANNOTATED 11/29/2024 CBC WITH AUTO DIFFERENTIAL STAT 11/28/2024 4:05 AM EDT CBC AND DIFFERENTIAL STAT 11/28/2024 4:05 AM EDT MAGNESIUM STAT 11/28/2024 4:04 AM EDT LIPASE STAT 11/28/2024 4:04 AM EDT COMPREHENSIVE METABOLIC PANEL STAT 11/28/2024 4:04 AM EDT TROPONIN I HIGH SENSITIVITY Timed 11/28/2024 4:04 AM EDT B-TYPE NATRIURETIC PEPTIDE STAT 11/28/2024 4:04 AM EDT ECG 12-LEAD STAT 11/28/2024 3:57 AM EDT GENNA SCREENING DIGITAL Routine 08/19/2023 10:40 AM EDT Encounter for screening mammogram for malignant neoplasm of breast from Last 3 Months or Most Recently Relevant to Health Maintenance Results * ECG-Annotated (11/29/2024) us Provider Onbase MD ECG ORDERABLES Final Result * CBC auto differential (11/28/2024 4:05 AM EDT) WBC 7.0 4.8 - 10.8 K/mcL LAB HEMETOLOGY METHOD 11/28/2024 5:15 AM EDT [facility] RBC 4.10 3.80 - 4.80 M/mcL LAB HEMETOLOGY METHOD 11/28/2024 5:15 AM EDT [facility] Hemoglobin 12.9 11.5 - 16.0 g/dL LAB HEMETOLOGY METHOD 11/28/2024 5:15 AM EDT [facility] Hematocrit 38.3 35.0 - 47.0 % LAB HEMETOLOGY METHOD 11/28/2024 5:15 AM EDT [facility] MCV 92.7 79.0 - 98.0 FL LAB HEMETOLOGY METHOD 11/28/2024 5:15 AM EDT [facility] MCH 31.2 27.0 - 32.0 pcg LAB HEMETOLOGY METHOD 11/28/2024 5:15 AM EDT [facility] MCHC 33.7 32.0 - 37.0 g/dL LAB H[facility]ETOLOGY [facility] RDW 11.9 11.0 - 15.0 % LAB HEMETOLOGY METHOD 11/28/2024 5:15 AM EDT [facility] Platelets 323 130 - 400 K/mcL LAB HEMETOLOGY METHOD [facility]/28[facility]24 [facility] MPV 9.4 7.0 - 11.0 FL LAB HEMETOLOGY METHOD 11/28[facility]2024 5[facility] NRBC 0.0 <1.0 % LAB HEMETOLOGY METHOD 11/28/2024 5:15 AM EDT [facility] NRBC Absolute 0.00 <0.10 K/mcL LAB HEMETOLOGY METHOD 11/28/2024 5:15 AM EDT [facility] Neutrophils Relative 32.7 % LAB HEMETOLOGY METHOD 11/28[facility]2024 [facility] Lymphocytes Relative 59.1 % LAB HEMETOLOGY METHOD 11/28/2024 5:15 AM EDT [facility] Monocytes Relative 5.4 % LAB HEMETOLOGY METHOD 11/28/2024 5:15 AM EDT [facility] Eosinophils Relative 2.3 % LAB HEMETOLOGY METHOD 11/28/2024 5:15 AM EDT [facility] Basophils Relative 0.4 % LAB HEMETOLOGY METHOD 11/28/2024 5:15 AM EDT [facility] Immature Granulocytes Relative 0.1 % LAB HEMETOLOGY METHOD 11/28/2024 5:15 AM EDT [facility] Neutrophils Absolute 2.29 1.50 - 7.00 K/mcL LAB HEMETOLOGY METHOD 11/28/2024 5:15 AM EDT [facility] Lymphocytes Absolute 4.15 1.00 - 5.00 K/mcL LAB HEMETOLOGY METHOD 11/28/2024 5:15 AM EDT [facility] Monocytes Absolute 0.38 0.20 - 1.00 K/mcL LAB HEMETOLOGY METHOD 11/28/2024 5:15 AM EDT [facility] Eosinophils Absolute 0.16 0.00 - 0.50 K/mcL LAB HEMETOLOGY METHOD 11/28/2024 5:15 AM EDT [facility] Basophils Absolute 0.03 0.00 - 0.20 K/mcL LAB HEMETOLOGY METHOD 11/28/2024 5:15 AM EDT [facility] Immature Granulocytes Absolute 0.01 0.00 - 0.03 K/mcL LAB HEMETOLOGY METHOD 11/28/2024 5:15 AM EDT [facility] Blood Venous blood specimen / Unknown Venipuncture / Unknown 11/28/2024 4:05 AM EDT 11/28/2024 5:08 AM EDT us Joshua Mills MD LAB BLOOD ORDERABLES Final Result [facility] [address] [place] [address], * Troponin I high sensitivity (11/28/2024 4:04 AM EDT) [facility] High Sensitivity Troponin I 9 <=54 ng/L LAB CHEMISTRY METHOD 11/28/2024 5:45 AM EDT [facility] Blood Venous blood specimen / Unknown Venipuncture / Unknown 11/28/2024 4:04 AM EDT 11/28/2024 5:08 AM EDT Narrative [facility] - 11/28/2024 5:45 AM EDT High levels of biotin in samples may falsely decrease hsTroponin values. Use caution when interpreting hsTroponin results in patients taking biotin who exhibit renal impairment (eGFR <60) or in patients taking more than 20 mg/day of biotin. us Joshua Mills MD LAB BLOOD ORDERABLES Final Result Performing Organization Address City/[facility]/ZIP Co de Phone Number [facility] [address] [place] [address], [place] [phone] * B-type natriuretic peptide (11/28/2024 4:04 AM EDT) [facility] BNP 24 <=100 pcg/mL LAB CHEMISTRY METHOD 11/28/2024 5:49 AM EDT [facility] Blood Venous blood specimen / Unknown Venipuncture / Unknown 11/28/2024 4:04 AM EDT 11/28/2024 5:08 AM EDT us Joshua Mills MD LAB BLOOD ORDERABLES Final Result [facility] [address] [place] [address], [place] [phone] * (ABNORMAL) Magnesium (11/28/2024 4:04 AM EDT) [facility] Magnesium 1.8(L) 1.9 - 2.6 mg/dL LAB CHEMISTRY METHOD 11/28/2024 6:05 AM EDT [facility] Blood Venous blood specimen / Unknown Venipuncture / Unknown 11/28/2024 4:04 AM EDT 11/28/2024 5:08 AM EDT Joshua Mills MD LAB BLOOD ORDERABLES Final Result Performing Organization Address City/[facility]/ZIP Co de Phone Number [facility] [address] [place] [address], [place] [phone] * Lipase (11/28/2024 4:04 AM EDT) Pathologist [facility] Lipase 52 13 - 75 unit/L LAB CHEMISTRY METHOD 11/28/2024 6:05 AM EDT [facility] Blood Venous blood specimen / Unknown Venipuncture / Unknown 11/28/2024 4:04 AM EDT 11/28/2024 5:08 AM EDT Joshua Mills MD LAB BLOOD ORDERABLES Final Result Performing Organization Address [facility]/ZIP Co de Phone Number [facility] [address] [place] [address], [place] [phone] * (ABNORMAL) Comprehensive metabolic panel (11/28/2024 4:04 AM EDT) Sodium 138 133 - 145 mmol/L LAB CHEMISTRY METHOD 11/28/2024 6:16 AM EDT [facility] Potassium 2.8(LL) 3.5 - 5.5 mmol/L LAB CHEMISTRY METHOD 11/28/2024 6:16 AM EDT [facility] Comment:Results verified by repeat testing Chloride 99 96 - 110 mmol/L LAB CHEMISTRY METHOD 11/28/2024 6:16 AM T [facility] CO2 29 21 - 32 mmol/L LAB CHEMISTRY METHOD 11/28/2024 6:16 AM EDT [facility] Anion Gap 10 3 - 11 LAB CHEMISTRY METHOD 11/28/2024 6:16 AM [facility] Glucose 88 70 - 100 mg/dL LAB CHEMISTRY METHOD 11/28/2024 6:16 AM [facility] BUN 20 5 - 25 mg/dL LAB CHEMISTRY METHOD 11/28/2024 6:16 AM [facility] Creatinine 1.05 0.50 - 1.10 mg/dL LAB CHEMISTRY METHOD 11/28/2024 6:16 AM [facility] eGFR 60 >=60 mL/min/1. 73m2 LAB CHEMISTRY METHOD 11/28/2024 6:16 AM [facility] Comment:Calculation based on the Chronic Kidney Disease Epidemiology Collaboration (CKD-EPI) equation refit without adjustment for race. BUN/Creatinine Ratio 19.0 LAB CHEMISTRY METHOD 11/28/2024 6:16 AM [facility] Calcium 9.4 8.5 - 10.5 mg/dL LAB CHEMISTRY METHOD 11/28/2024 6:16 AM [facility] AST (SGOT) 17 10 - 42 unit/L LAB CHEMISTRY METHOD 11/28/2024 6:16 AM [facility] ALT (SGPT) 23 10 - 60 unit/L LAB CHEMISTRY METHOD 11/28/2024 6:16 AM [facility] Alkaline Phosphatase 75 42 - 121 unit/L LAB CHEMISTRY METHOD 11/28/2024 6:16 AM [facility] Total Protein 6.7 6.0 - 8.0 g/dL LAB CHEMISTRY METHOD 11/28/2024 6:16 AM [facility] Albumin 3.8 3.2 - 5.0 g/dL LAB CHEMISTRY METHOD 11/28/2024 6:16 AM [facility] Total Bilirubin 0.4 0.0 - 1.4 mg/dL LAB CHEMISTRY METHOD 11/28/2024 6:16 AM EDT [facility] Blood Venous blood specimen / Unknown Venipuncture / Unknown 11/28/2024 4:04 AM EDT 11/28/2024 5:08 AM EDT Joshua Mills MD LAB BLOOD ORDERABLES Final Result Performing Organization Address City/[facility] Co de Phone Number [facility] ([facility]) [facility] [address] [place] [address], * ECG 12 lead (11/28/2024 3:57 AM EDT) Ventricular Rate ECG 55 BPM [facility] Atrial Rate 55 BPM GEMUSE P-R Interval 188 ms GEMUSE QRS Duration 162 ms GEMUSE Q-T Interval 502 ms GEMUSE QTc 480 ms GEMUSE P Wave Brady 39 degrees GEMUSE R Brady 12 degrees GEMUSE T Brady -9 degrees GEMUSE ECG Interpretation Sinus bradycardia Right bundle branch block T wave abnormality, consider inferolateral ischemia Abnormal ECG When compared with ECG of 01-MAR-2024 19:06, Right bundle branch block is now Present Confirmed by MD Graeme, [place] ([id number]) on 11/28/2024 5:44:19 PM GEM[facility] 11/28/2024 3:57 AM EDT 11/28/2024 5:44 PM EDT Joshua Mills MD ECG ORDERABLES Final Resul t Performing Organization Address City/[facility]/ZIP Co de Phone Number GEM[facility] * GENNA SCREENING DIGITAL (08/19/2023 10:40 AM EDT) Anatomical Region Laterality Modality Mammography 08/19/2023 9:25 AM EDT Narrative 08/19/2023 10:40 AM EDT [facility] Diagnostic Imaging Department [address] [place] [address] Patient: STEPHANIE BRENNAN /Age/Sex: 1960 - 62 - F Unit#: [id number] Location/Status: SPDIMAM/REG CLI Mnemonic/Ordering Site: [facility] Ordering Physician: NIRAV DUMONT MD [facility] Screening Digital - 08/19/23 - [id number] Report Status:Signed EXAM: [facility] Screening Digital EXAM DATE AND TIME: 08/19/2023 9:52 AM HISTORY: Annual screening COMPARISON: Multiple exams dating back to 2014 TECHNIQUE: Bilateral digital breast tomosynthesis was performed in the CC and MLO projections. Computer aided detection with [employer] 3D 3.1 was employed. TISSUE DENSITY: b. There are scattered areas of fibroglandular density. FINDINGS: No suspicious masses, grouped microcalcifications, or areas of architectural distortion are seen. The skin and vascularity are unremarkable. IMPRESSION: Stable mammographic appearance of the breasts. No evidence of malignancy is seen. A negative [...] Date/Time: 08/19/23 1039 Sign date/Time: 08/19/23 1040 Procedure Note Tati Banks MD - 12/20/2023 [facility] Diagnostic Imaging Department [address] [place], [place] [id number] Patient: STEPHANIE BRENNAN Alvin /Age/Sex: 1960 - 62 - F Unit#: [id number] Location/Status: SPDIMAM/REG CLI Mnemonic/Ordering Site: [facility] Ordering Physician: NIRAV DUMONT MD [facility] Screening Digital - 08/19/23 - 0952 Report Status:Signed EXAM: [facility] Screening Digital EXAM DATE AND TIME: 08/19/2023 9:52 AM HISTORY: Annual screening COMPARISON: Multiple exams dating back to 2014 TECHNIQUE: Bilateral digital breast tomosynthesis was performed in the CCand MLO projections. Computer aided detection with [employer] 3D 3.1was employed. TISSUE DENSITY: b. There [...] Date/Time: 08/19/23 1039 Sign date/Time: 08/19/23 1040 Nirav Dumont MD IMG BI PROCEDURES Final Result from Last 3 Months or Most Recently Relevant to Health Maintenance Insurance [facility] [place] [address] Advance Directives Documents on File Type Date Recorded Patient Cpht Expl anation Health Care Decision (hx) 01/06/2018 [...] (hx) 01/06/2018 AD KNOTT DIRECTIVE Care Teams Development Administrator Relationship Specialty Start Date End Date Nirav Dumont MD [address] [place] [address] PCP - General Internal Medicine 11/01/17
--- OUTSIDE RECORDS SUMMARY | 2024-12-27 11:35 | XMS_ITS | Encounter Summary ---
Author Organization [facility] Address [address] [place] [address] Care Team Providers Care Registered Nurse Fetal Name Role Phone Nirav Dumont MD Primary Care Provider [phone] Reason for Visit * Reason Onset Date Comments Prior Auth 12/21/2024 Encounter Details Date Type Department Care Team ([facility] Contact Info) Description 12/21/2024 Telephone [facility] [address] [facility] [address] [place] [address] Karolina Power MD [address] [place] [address] Social History Tobacco Use Types Packs/Day Years [...] as of this encounter Progress Notes * Dai Butler MA - 12/22/2024 8:09 AM EDT Your provider documented one of the following: (a) You have had a poor response (defined as at least 3 months of therapy) or negative reaction to the separate agents: fluticasone/vilanterol (a medication) and Incruse (another medication) once daily; (b) You have had a poor response (defined as at least 3 months of therapy) or negative reaction to the separate agents: Anoro (umeclidinium/vilanterol) and Arnuity (fluticasone furoate inhalation powder) once daily; or (c) Medical reason why you cannot utilize the combination of the separate agents: fluticasone/vilanterol (a medication) and Incruse (another medication) once daily OR Anoro (umeclidinium/vilanterol) and Arnuity (fluticasone furoate inhalation powder) once daily. Trelegy Denied * Dai Butler MA - 12/21/2024 3:53 PM EDT PA for Trelegy Ellipta 100-62.5-25 mcg initiated on cmm Dx J44.9 * Nancy Ray MA - 12/21/2024 3:50 PM EDT PA requested via EPIC * Mariana Hylton - 12/21/2024 3:33 PM EDT Pharmacy call looking for PA for: Trelegy Ellipta 100-62.5-25 mcg No fax yet with Gtz Code or BIN number. documented in this encounter Plan of Treatment Upcoming Encounters Date Type Department Care Team (Late st Contact Info) Description 02/05/2025 9:45 AM EDT [facility] [address] [phone] Karolina Power MD [address] [place] [phone] documented as of this encounter Visit Diagnoses Not on filedocumented in this encounter Care Teams Registered Nurse Fetal Relationship Specialty Start Date End Date Nirav Dumont MD [address] [place] [address] PCP - General Internal Medicine 11/01/17 documented as of this encounter
== END 2024-12-27 11:28 | disposition home or self-care (01) ==
LOC: HO.HSM 10:42
PROVIDERS: PCP Internal Medicine; Visit Provider Psychiatry & Neurology Neurology
DX: R51.9 Headache, unspecified (principal); G31.84 Mild cognitive impairment of uncertain or unknown etiology
CPT/HCPCS: 99214

== ENCOUNTER 2025-04-20 10:47 | Outpatient (AMB) | payer OTHER, SELFPAY ==
--- NOTE | 2025-04-20 11:21 | MHC.OFFVIS ---
Intake Visit Reasons: 4m Allergies penicillin G (Penicillin G) Allergy (Mild, Verified 04/20/25 11:24) FEVER,RASH codeine (Codeine) Adverse Reaction (Mild, Verified 04/20/25 11:24) FEVER,RASH Medication List - Last Reconciled 04/20/25 by Tia Watters CNP albuterol sulfate 90 mcg/actuation 2 puffs inhalation Q4-6H PRN amitriptyline 20 mg (2 x 10 mg) PO BEDTIME 90 days atorvastatin 20 mg PO BEDTIME donepezil 5 mg PO DAILY 30 days ztolgivmnri-hcwkjwhil-skxbanca 100-62.5-25 mcg (Trelegy Ellipta) 1 ea inhalation DAILY lisinopril-hydrochlorothiazide 20-25 mg 2 tabs PO DAILY meclizine 12.5 mg PO TID PRN metoprolol succinate ER 100 mg PO DAILY verapamil ER 180 mg PO DAILY HPI Comments Details: She was doing okay. She was taking amitriptyline at bedtime. No significant headaches and she was not taking Tylenol daily anymore. She was taking donepezil, no medication side effects, and feels her memory is a bit better since starting medication. Mood could be anxious and she reported feeling irritable and agitated at times, especially if things did not go according to plan or as scheduled. Sleep was okay. She was let go from her job because she was unable to perform her duties that she did for 25 years.? She is aware that she has some mental issues with her memory.?When too much is going on, it becomes overwhelming and she gets aggravated, angry, and confused. She sleeps excessively.? History of daily headache x4 months, taking 2 Tylenol every 4 hours.? She had a CT scan of the brain at [facility] which was apparently negative.?No family history of dementia.? She gives a remote history of having had a brain bleed because of uncontrolled hypertension around 2014. [facility] Medical History (Updated 04/20/25 @ 11:23 by Tia Watters CNP) Gall bladder inflammation Hx of electroencephalogram Mild cognitive impairment NATHAN (obstructive sleep apnea) HLD (hyperlipidemia) CVA (cerebrovascular accident) Anxiety Depression HTN (hypertension) Social History Patient Tobacco Use Status: Never used Tobacco Review of Systems Const Denies chills, Denies daytime sleepiness, Denies difficulty sleeping, Denies fatigue, Denies fever(s), Denies frequent falls, Reports headache(s), Denies increased appetite, Denies poor appetite, Denies snoring, Denies weakness, Denies weight gain and Denies weight loss Eyes Denies loss of vision ENT Denies vertigo, Denies dizziness, Reports headache(s) and Denies neck pain Card Denies chest pain at rest, Denies chest pain with activity, Denies syncope, Denies leg edema, Denies palpitations, Denies dyspnea and Denies dyspnea on exertion Resp Denies cough, Denies dyspnea, Denies dyspnea on exertion and Denies snoring GI Denies abdominal pain, Denies constipation, Denies heartburn, Denies diarrhea and Denies nausea Denies urinary frequency, Denies urinary incontinence and Denies urinary urgency Musc Denies abnormal gait, Denies back pain, Denies myalgias, Denies arthralgias, Denies neck pain, Denies numbness and Denies tingling Neuro Denies abnormal gait, Denies vertigo, Denies dizziness, Denies syncope, Denies frequent falls, Reports headache(s), Denies lack of coordination, Denies loss of vision, Reports memory loss, Denies numbness, Denies Other visual disturbances, Denies restless legs, Denies seizure-like activity, Denies tingling, Denies paresthesias, Denies tremor(s) and Denies weakness Psych Denies anxiety, Denies depression, Denies auditory hallucinations, Reports memory loss and Denies visual hallucinations Endo Denies fatigue and Denies palpitations Physical Exam Const Other: General Appearance:? normal, in no acute distress. Heart:? S1, S2 normal, no murmurs. Lungs:? clear anteriorly and posteriorly. Musculoskeletal:? normal. Extremities:? no edema. Psych:? alert, as below. Neuro Other: Abnormal Neurological Findings:?flat affect. MMSE 22/30 Mental Status: alert, as below. Cranial Nerves: Pupils are equal, round, and reactive to light. External ocular muscles are intact. Visual shaw are full, no ptosis. Face is symmetrical, no facial weakness or droop. Facial sensations are normal. Tongue protrudes in midline. Palate elevates symmetrically. Shoulder shrugging is normal Motor Examination: Normal muscle tone, bulk and strength. No atrophy or fasciculations. No drift of the extended upper extremities. DTR 2+. Plantars are flexor. Sensory Exam: Normal light touch, temperature, pinprick, vibration, and joint-position sensations. Rhomberg sign is absent. Coordination: No ataxia. No titubation. Gait Exam: Within normal limits. Cerebellar Signs: Awzefq-cd-cuor is okay. Extrapyramidal System: No tremor, rigidity with normal facial expressions. No bradykinesia. No bradyphrenia. Normal arm swing and posture. No propulsion or retropulsion. Speech: Normal. MMSE Level of Consciousness: Alert. Orientation: Knows correct year, month, day and season. Not date. Knows correct city, county and state. Knows correct location and floor. Registration: Able to register 3 objects. Attention: Serial 7's unable. Recall: Able to recall 1 out of 3 objects. Language: Normal spontaneous speech, fluency, repetition, naming, comprehension, reading, and writing. Total Score: 22/30. Results Reviewed Results Reviewed: Spinal fluid Protein 53.6 Phosphotau and A beta 42 inconclusive 08/17/24 EEG- WNL MRI : mild to moderate cortical atrophy, particularly in the temporal lobes. Minor microvascular changes Assessment & Plan Assessment & Plan (1) Chronic daily headache: Code(s): R51.9 - Headache, unspecified Category: Medical Plan: Continue amitriptyline 10mg 2 tablets at bedtime. (2) Mild cognitive impairment: Comment: 09/22/24 MMSE 22/30, MoCA 13/30 with MIS 15. 08/17/24 EEG- WNL MRI : mild to moderate cortical atrophy, particularly in the temporal lobes. Minor microvascular changes Code(s): G31.84 - Mild cognitive impairment of uncertain or unknown etiology Category: Medical Plan: Increase donepezil 10mg 1 tablet at bedtime. Start sertraline 25mg 1 tablet daily, use/side effects reviewed. Stay physically and socially active. Follow up in 3 months or sooner as needed. Medications: New donepezil 10 mg PO BEDTIME 90 tabs 1RF 90 days sertraline 25 mg PO DAILY 30 tabs 2RF 30 days Discontinued donepezil Discontinued Reason: Doctor's Order 5 mg PO DAILY 30 days 30 tabs 5RF Coding Level of Care Code Est Pt Level 4 (59507) Diagnoses Chronic daily headache R51.9 Mild cognitive impairment G31.84
--- OUTSIDE RECORDS SUMMARY | 2025-04-20 12:34 | XMS_ITS | Encounter Summary ---
Author Organization [facility] Address [address] [place] [address] Phone Care Team Providers Care Biology Teacher Name Role Phone Pcp, Unknown Primary Care Provider Nirav Snyder MD Primary Care Provider [phone] Reason for Referral * MRI/CAT Scan - Closed Specialty Diagnoses / Procedures Referred By Contac t Referred To Contact Radiology Diagnoses Atypical chest pain Procedures NC Myocardial Perfusion Exercise Multiple Ru Viveros DO Phone: tel: fax: mailto:[email or web address] Referral ID Status Reason Start Date Expiration Date Visits Re quested Visits Authorized [id number] Closed 06/27/2019 09/25/2019 1 1 * Outpatient Procedure - Closed Specialty Diagnoses / Procedures Referred By Contac ysabel Referred To Contact Diagnoses Atypical chest pain Procedures Adult Echo TTE Ru Viveros DO Phone: tel: fax: mailto:[email or web address] Referral ID Status Reason Start Date Expiration Date Visits Re quested Visits Authorized [id number] Closed 06/23/2019 06/22/2020 1 1 Encounter Details Date Type Department Care Team (Latest Contact Info) Description 06/23/2019 Transcribe Orders [facility] [address] 3[address], [address] [place] [address] Ru Viveros DO [address] [address] [email or web address] Atypical chest pain (Primary Dx) [...] in SPECT format, reconstructed tomographically and compared sbzt-zx-evgg in short axis, horizontal long axis and [...] followed by injection of Tc99m Sestamibi by [facility] nuclear cardiology technologist. 1. EKG - Baseline EKG showed normal [...] stress report for full details. Noah Bolden [address] . Perfusion Comments Stress LV cavity volume [...] events or cardiac in the next twoyears. us Ru Nelson Arcoleo DO CV NM CARDIAC Final Result documented in this encounter Visit Diagnoses Diagnosis Atypical chest pain- Primary Other chest pain Other chest pain- Primary documented in this encounter Care Teams Biology Teacher Relationship Specialty Start Date End Date Pcp, Unknown PCP - General 06/23/19 06/29/19 Nirav Dumont MD [address] [facility] [address] [place] [address] PCP - General Internal Medicine 06/30/19 documented as of this encounter Additional Source Comments The information contained in this document represents components of the legal health record. It is not the complete legal health record.[facility]
--- OUTSIDE RECORDS SUMMARY | 2025-04-20 12:34 | XMS_ITS | Clinical Summary ---
Author Organization [facility] Address [address] [facility] [facility] [address] [place] [id number] Phone Care Team Providers Care Manager Call Name Role Phone Nirav Dumont MD Primary Care Provider [phone] Active Problems Problem Noted Date Diagnosed Date [...] DEPRESSION SCREENING 1973 SMOKING Hx and SMOKELESS TOBACCO SCREENING 1974 HEPATITIS C SCREENING 09/17/1979 HIV ONE-TIME SCREENING (18-6 5 YEARS) 09/17/1979 PAP SMEAR 1982 MAMMOGRAM 2001 COLOGUARD 2006 COLONOSCOPY 2006 COLORECTAL CANCER SCREENING 2006 FIT TEST 2006 FOBT 2006 SIGMOIDOSCOPY 2006 VIRTUAL COLONOSCOPY 2006 PNEUMOCOCCAL VACCINES (50+ years) (1 of 1 - PCV) 09/17/2011 ZOSTER VACCINES (1 of 2) 09/17/2011 INFLUENZA VACCINE (#1) 2024 7, 04/07/2016 COVID-19 VACCINE (2 - 2024-2 6 season) 2025 03/01/2021 Adult Td,Tdap Booster 10/19/2025 10/20/2015 RSV [...] topic Medical Devices Not on file [place] [address] [address] PPO [facility] OUT OF [facility] PPO [employer] OUT OF STATE PPO [address] [place] [id number] [employer] OUT OF STATE PPO BL[employer] [place] OUT OF STATE PPO [employer] [place] OUT OF STATE PPO [address] [place] [id number] [employer] OUT OF STATE PPO Member Subscriber Plan / Payer (Ef fective 2020-) Name:MikaStephanie Relation to Subscriber:Self Name:Stephanie Brennan Payer ID:[id number] (NA) Type:PPO Address: [address] [place] [id number] [employer] OUT OF STATE PPO [address] [place] [address] [employer] OUT OF STATE PPO Care Teams Manager Call Relationship Specialty Start Date End Date Nirav Dumont MD [address] [place] [address] [address] [place] [address] PCP - General Internal Medicine 06/30/19 Additional Source Comments The information contained in this document represents components of the legal health record. It is not the complete legal health record.[facility]
--- OUTSIDE RECORDS SUMMARY | 2025-04-20 12:34 | XMS_ITS | Clinical Summary ---
Author Organization [facility] Address [address] [place] [address] Phone Care Team Providers Care Package Car Driver Name Role Phone Nirav Dumont MD Primary Care Provider [phone] Allergies Active Allergy Reactions Criticality Noted Date Comments Codeine 07/12/2024 Penicillins 07/12/2024 Medications loratadine 10 mg capsule Take 10 mg by mouth. 1 Active atorvastatin (LIPITOR) 20 mg tablet Take 1 tablet (20 mg total) by mouth at bedtime. Active verapamil ER (VERELAN) 180 mg 24 hr capsule Take 1 capsule (180 mg total) by mouth 1 (one) time each day. 4 Active metoprolol succinate (TOPROL-XL) 100 mg 24 hr tablet Take 1 tablet (100 mg total) by mouth 1 (one) time each day. Active lisinopril-hydro CHLOROthiazide (PRINZIDE,ZESTOR ETIC) 20-25 mg per tablet Take 2 tablets by mouth 1 (one) time each day. 5 Active ondansetron (ZOFRAN) 4 mg tablet Take 1 tablet (4 mg total) by mouth 2 (two) times a day if needed. 4 Active lisinopriL (PRINIVIL,ZESTRI L) 10 mg tablet 5 Active amitriptyline (ELAVIL) 10 mg tablet Take 2 tablets (20 mg total) by mouth at bedtime. at bedtime 5 Active umeclidinium-joe anteroL (Anoro Ellipta) 62.5-25 mcg/actuation inhaler Inhale 1 puff by mouth 1 (one) time each day. 3 each 4 5 12/07/19 Active umeclidinium-joe anteroL (Anoro Ellipta) 62.5-25 mcg/actuation inhaler Inhale 1 puff by mouth 1 (one) time each day. 3 each 11 5 12/07/19 Active Additional Information Patient not taking.Reported on 02/05/2025 albuterol HFA (PROAIR HFA ; PROVENTIL HFA ; VENTOLIN HFA) 90 mcg/actuation inhaler Inhale 2 puffs by mouth 4 (four) times a day. 36 g 5 Active potassium chloride (MICRO-K) 10 mEq CR capsule Take 1 capsule (10 mEq total) by mouth 1 (one) time each day. 5 Active nitroglycerin (Nitrostat) 0.[address] 1 tablet (0.4 mg total) under the tongue. 4 Active donepeziL (ARICEPT) 5 mg tablet Take 1 tablet (5 mg total) by mouth 1 (one) time each day. 5 Active fluticasone-umec lidinium-vilante rol (TRELEGY ELLIPTA) 100-62.5-25 mcg inhalerIndicatio ns:Chronic obstructive pulmonary disease, unspecified COPD type ([facility] V24, [facility] V28) Inhale 1 puff (100 mcg total) by mouth 1 (one) time each day. Rinse mouth with water after use to reduce aftertaste and incidence of candidiasis. Do not swallow. 1 each 02/10/20 Active Hospital, Clinic, or Other Facility Administered Medication Ordered Dose Route Frequency Start Date End Date Status fluticasone furoate (ARNUITY ELLIPTA) inhaler blister with device 1 puffIndications:Pulmonary emphysema, unspecified emphysema type 1 puff inhl Daily 11/30/2024 Active fluticasone furoate (ARNUITY ELLIPTA) inhaler blister with device 1 puffIndications:Pulmonary emphysema, unspecified emphysema type 1 puff inhl Daily 12/06/2024 Active Active Problems Problem Noted Date Diagnosed Date Class 1 obesity 12/21/2024 NATHAN (obstructive sleep apnea) 10/20/2024 Palpitations 10/20/2024 Pancreatitis 10/20/2024 Severe obesity (BMI 35.0-39.9) with comorbidity 10/20/2024 Vitamin D deficiency 10/20/2024 COPD (chronic obstructive pulmonary disease) Anxiety disorder 12/27/2020 Calculus of gallbladder 12/27/2020 Coronary atherosclerosis of gambell coronary micaela ry 12/27/2020 Diverticulitis 12/27/2020 HTN (hypertension) 12/27/2020 Hyperlipidemia 12/27/2020 Joint pain of ankle and foot 12/27/2020 Lumbago 12/27/2020 Over weight 12/27/2020 Stress incontinence, female 12/27/2020 Other chest pain 06/30/2019 Encounters Date Type Department Care Team Description 02/23/2025 Telephone [facility] [address] [place] [address] Nirav Dumont MD 02/07/2025 Telephone Pulmonology [facility] [address] [facility] [address] [place] [phone] Allyssa Anand MD 02/07/2025 Telephone Pulmonology [facility] [address] [facility] [address] [place] [phone] Allyssa Anand MD 02/05/2025 9:45 AM EDT Office Visit Pulmonology [facility] [address] [phone] Allyssa Anand MD Chronic obstructive pulmonary disease, unspecified COPD type (CMS/HCC V24, CMS/HCC V28) (Primary Dx) from Last 3 Months Social History Tobacco [...] Sign Reading Time Taken Comments Blood Pressure 134/80 02/05/2025 10:12 AM EDT Pulse 74 02/05/2025 10:12 AM EDT Temperature 36.4 C (97.5 F) 02/05/2025 10:12 AM EDT Respiratory Rate 16 02/05/2025 10:12 AM EDT Oxygen Saturation 98% 02/05/2025 10:12 AM EDT Inhaled Oxygen Concentration - - Weight 80.9 kg (178 lb 6.4 oz) 02/05/2025 10:12 AM EDT Height 165.1 cm (5' 5 ) 02/05/2025 10:12 AM EDT Body Mass Index 29.69 02/05/2025 10:12 AM EDT Plan of Treatment Upcoming Encounters Date Type Department Care Team (Late st Contact Info) Description 08/07/2025 9:30 AM EDT Office Visit Pulmonology - [address] [place] [address] Colleen Reddy MD [address] [place] [phone] Health Maintenance Due Date Last Done Comments Colorectal Cancer Screening: Colonoscopy 1961 Cervical Cancer Screening: P ap Smear 1982 RSV Immunization Adult Patients (1 - Risk 50-74 years 1-dose series) 09/17/2011 Zoster Vaccines (1 of 2) 09/17/2011 Pneumococcal Vaccine: 50+ Years (2 of 2 - PCV) 05/25/2020 05/25/2019 Cholesterol Screening (Lipid Panel) 03/31/2022 HIV Screening 03/31/2022 Hepatitis C Screening 03/31/2022 Social Influencers of Health Screening 03/31/2022 Depression Screening 05/03/2024 COVID-19 Vaccine (3 - 2024-2 6 season) 2025 03/22/2021, 03/01/2021 Influenza Vaccine (#1) 2025 7, 04/07/2016 Breast [...] Procedure Name Priority Date/Time Associated Diagnosis Comments COMPREHENSIVE METABOLIC PANEL STAT 11/28/2024 4:04 AM EDT [facility] SCREENING DIGITAL Routine 08/19/2023 10:40 AM EDT Encounter for screening mammogram for malignant neoplasm of breast from Last 3 Months or Most Recently Relevant to Health Maintenance Results * (ABNORMAL) Comprehensive metabolic panel (11/28/2024 4:04 AM EDT) Sodium 138 133 - 145 mmol/L LAB CHEMISTRY METHOD 11/28/2024 6:16 AM EDT [facility] Potassium 2.8(LL) 3.5 - 5.5 mmol/L LAB CHEMISTRY METHOD 11/28/2024 6:16 AM EDT [facility] Comment:Results verified by repeat testing Chloride 99 96 - 110 mmol/L LAB CHEMISTRY METHOD 11/28/2024 6:16 AM T [facility] CO2 29 21 - 32 mmol/L LAB CHEMISTRY METHOD 11/28/2024 6:[address] [facility] Anion Gap 10 3 - 11 LAB CHEMISTRY METHOD 11/28/2024 6:[address] [facility] Glucose 88 70 - 100 mg/dL LAB CHEMISTRY METHOD 11/28/2024 6:[address] [facility] BUN 20 5 - 25 mg/dL LAB CHEMISTRY METHOD 11/28/2024 6:[address] [facility] Creatinine 1.05 0.50 - 1.10 mg/dL LAB CHEMISTRY METHOD 11/28/2024 6:[address] [facility] eGFR 60 >=60 mL/min/1. 73m2 LAB CHEMISTRY METHOD 11/28/2024 6:[address] [facility] Comment:Calculation based on the Chronic Kidney Disease Epidemiology Collaboration (CKD-EPI) equation refit without adjustment for race. BUN/Creatinine Ratio 19.0 LAB CHEMISTRY METHOD 11/28/2024 6:[address] [facility] Calcium 9.4 8.5 - 10.5 mg/dL LAB CHEMISTRY METHOD 11/28/2024 6:[address] [facility] AST (SGOT) 17 10 - 42 unit/L LAB CHEMISTRY METHOD 11/28/2024 6:[address] [facility] ALT (SGPT) 23 10 - 60 unit/L LAB CHEMISTRY METHOD 11/28/2024 6:[address] [facility] Alkaline Phosphatase 75 42 - 121 unit/L LAB CHEMISTRY METHOD 11/28/2024 6:[address] [facility] Total Protein 6.7 6.0 - 8.0 g/dL LAB CHEMISTRY METHOD 11/28/2024 6:[address] [facility] Albumin 3.8 3.2 - 5.0 g/dL LAB CHEMISTRY METHOD 11/28/2024 6:[address] [facility] Total Bilirubin 0.4 0.0 - 1.4 mg/dL LAB CHEMISTRY METHOD 11/28/2024 6:16 AM EDT [facility] Blood Venous blood specimen / Unknown Venipuncture / Unknown 11/28/2024 4:04 AM EDT 11/28/2024 5:08 AM EDT us Joshua Mills MD LAB BLOOD ORDERABLES Final Result [facility] [address] [place] [address], * RAFAEL SCREENING DIGITAL (08/19/2023 10:40 AM EDT) Anatomical Region Laterality Modality Mammography 08/19/2023 9:25 AM EDT Narrative 08/19/2023 10:40 AM EDT [facility] Diagnostic Imaging Department [address] [place] [address] Patient: STEPHANIE BRENNAN Alvin Olea./Age/Sex: 1960 - 62 - F Unit#: [id number] [facility] Mnemonic/Ordering Site: DIGSC/SPMAM Ordering Physician: NIRAV DUMONT MD [facility] Screening Digital - 08/19/23 - 0952 Report Status:Signed EXAM: [facility] Screening Digital EXAM DATE AND TIME: 08/19/2023 9:52 AM HISTORY: Annual screening COMPARISON: Multiple exams dating back to 2014 TECHNIQUE: Bilateral digital breast tomosynthesis was performed in the CC and MLO projections. Computer aided detection with proVITAL 3D 3.1 was employed. TISSUE DENSITY: b. [...] screening mammogram BILATERAL in 1 year. 3341F, 7089F Dictating Physician: TATI BANKS MD Electronically Signed by: TATI BANKS MD Dic Date/Time: 08/19/23 1039 Sign date/Time: 08/19/23 1040 Procedure Note Tati Banks MD - 12/20/2023 [facility] Diagnostic Imaging Department [address] [place] [address] Patient: JESSESTEPHANIE D.O.B./Age/Sex: 1960 - 62 - F Unit#: [id number] Location/Status: [facility] CLI Mnemonic/Ordering Site: [facility] Ordering Physician: NIRAV DUMONT MD [facility] Screening Digital - 08/19/23 - 0952 Report Status:Signed EXAM: [facility] Screening Digital EXAM DATE AND TIME: 08/19/2023 9:52 AM HISTORY: Annual screening COMPARISON: Multiple exams dating back to 2014 TECHNIQUE: Bilateral digital breast tomosynthesis was performed in the CCand MLO projections. Computer aided detection with iCAD LiveOps AI 3D 3.1was employed. TISSUE DENSITY: b. 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
== END 2025-04-20 11:39 | disposition home or self-care (01) ==
LOC: HO.HSM 10:48
PROVIDERS: PCP Internal Medicine; Visit Provider Registered Nurse
DX: R51.9 Headache, unspecified (principal); G31.84 Mild cognitive impairment of uncertain or unknown etiology
CPT/HCPCS: 99214

== ENCOUNTER → 2025-04-20 10:47 | Outpatient (BNVA) | payer OTHER, SELFPAY | PROVIDERS: PCP Internal Medicine; Visit Provider Registered Nurse | DX: R51.9 Headache, unspecified (principal); G31.84 Mild cognitive impairment of uncertain or unknown etiology; Z79.899 Other long term (current) drug therapy; I10 Essential (primary) hypertension | CPT/HCPCS: 99212 ==